=== PATIENT | female | born 1965 | race Caucasian/White ===

== ENCOUNTER 2020-11-03 17:57 | Emergency (ER) | payer BC ==
[2020-11-03] MEDS ORDERED: Sodium Chloride 0.9% 1000 ML 1,000 ML IV STA (18:33)
[2020-11-03] MEDS ORDERED: Sodium Chloride 0.9% 1000 ML 1,000 ML ONE (18:38)
[2020-11-03 18:48] VITALS: PULSE 54; O2SAT 100
[2020-11-03 18:48] LABS: BASOPHIL % 0.3 % (0.0-0.4); Basophil (Absolute #) 0.02 (0-0.4); Eosinophil (Absolute #) 0.13 (0-0.5); Hemoglobin 11.8 gm/dl (12.0-16.0); Lymphocyte (Absolute #) 1.71 (1.0-4.6); Lymphocytes % 26.2 % (24.0-44.0); Mean Cell Volume 80.3 fl (78-100); Mean Corpuscular Hemoglobin 25.6 pg (26-32); Mean Corpuscular Hgb Concent. 31.9 g/dl (32-36); Mean Platelet Volume 10.3 fl (7.5-11.0); Monocyte (Absolute #) 0.56 (0.0-1.3); Monocytes % 8.6 % (0.0-12.0); Neutrophil % 62.9 % (36.0-66.0); Platelet Count 229 K/mm3 (150-450); Red Blood Count 4.61 M/mm3 (4.1-5.4); Red Cell Distribution Width 14.2 % (11.5-14.0); White Blood Count 6.5 K/mm3 (4.0-10.5)
--- NOTE | 2020-11-03 18:59 | ERPHSYRPT ---
- History of Present Illness Historian: patient Patient Subjective Stated Complaint: Pt states that [place] works at [place] and she has high anxiety over bryant and she says that she has barely eaten or drank anything all week and she thinks she is dehydrated due to a little bit of tingling in her fingers and toes and a few flutters in her chest Triage Nursing Assessment: Pt drove self to the ER, stated that she sat in the parking lot an hour before she came in due to her anxiety, hypertensive, denies pain, she dwells on covid symptoms and is scared to get it, high anxiety, pulses normal, doesn't appear to be in any distress Physician History: 54 yo anxious WF thinks that she is dehydrated because she has not been drinking enough but denies N/V/D/Fever/melena/hematochezia/dysuria/hematuria. Pt works at the [employer] and is worried about CV19. Timing/Duration: day(s) (1wk) Activities at Onset: none Quality: other (No pain) Pain Radiation: no radiation Severity of Pain-Max: none Severity of Pain-Current: none Modifying Factors: Improves With: nothing Associated Symptoms: denies symptoms Previous symptoms: no prior history Allergies/Adverse Reactions: No Known Drug Allergies Allergy (Verified 11/03/20 18:19) Home Medications: Alprazolam 0.25 mg [xanAX 0.25 MG] 0.25 mg PO UD PRN 11/03/20 [History] Amlodipine Besylate 10 mg PO DAILY 11/03/20 [History] Clopidogrel Bisulfate 75 mg [PLAVIX 75 MG Tablet] 75 mg PO DAILY 11/03/20 [History] Labetalol HCl 200 mg PO TID 11/03/20 [History] Travel Risk - International Travel Have you traveled outside of the country in past 3 weeks: No - Coronavirus Screening Are you exhibiting any of the following symptoms?: No Close contact with a COVID-19 positive Pt in past 14-21 Days: No - Review of Systems Constitutional: No Symptoms Eyes: No Symptoms Ears, Nose, & Throat: No Symptoms Respiratory: No Symptoms Cardiac: No Symptoms Abdominal/Gastrointestinal: No Symptoms Genitourinary Symptoms: No Symptoms Musculoskeletal: No Symptoms Skin: No Symptoms Neurological: No Symptoms Psychological: No Symptoms Endocrine: No Symptoms Hematologic/Lymphatic: No Symptoms Immunological/Allergic: No Symptoms - Past Medical History Pertinent Past Medical History: Yes Cardiac History: Hypertension Respiratory History: Asthma History: Renal Disease Psycho-Social History: Anxiety - Past Surgical History Past Surgical History: Yes Gastrointestinal: Appendectomy Female Surgical History: Hysterectomy, Section Other Surgical History: renal artery stent, abdominoplasty, gastric sleeve - Social History Smoking Status: Former smoker Exposure to second hand smoke: No Drug Use: none Patient Lives Alone: No Significant Family History: no pertinent family hx - Female History Hx Now: No - Nursing Vital Signs Nursing Vital Signs: Initial Vital Signs Temperature 98.4 F 11/03/20 18:09 Pulse Rate 62 11/03/20 18:09 Blood Pressure 160/92 11/03/20 18:09 O2 Sat by Pulse Oximetry 99 11/03/20 18:09 Pain Scale Pain Intensity 0 - Physical Exam General Appearance: no apparent distress, anxiety Eye Exam: PERRL/EOMI, eyes nml inspection Ears, Nose, Throat Exam: normal ENT inspection, TMs normal, pharynx normal, moist mucous membranes Neck Exam: normal inspection, non-tender, supple, full range of motion, No meningismus, No mass, No Brudzinski, No Kernig's, No carotid bruit Respiratory Exam: normal breath sounds, lungs clear, airway intact, No respiratory distress Cardiovascular Exam: regular rate/rhythm, normal heart sounds, normal peripheral pulses, capillary refill <2 sec, No murmur Gastrointestinal/Abdomen Exam: soft, normal bowel sounds, No tenderness, No distention Back Exam: normal inspection, normal range of motion, No CVA tenderness, No vertebral tenderness Extremity Exam: normal inspection, normal range of motion Neurologic Exam: alert, oriented x 3, cooperative, 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, normal mood/affect, nml cerebellar function, nml station & gait, sensation nml, No motor deficits, No sensory deficit Skin Exam: normal color, warm, dry, No rash Lymphatic Exam: No adenopathy SpO2 Interpretation: normal SpO2: 100 O2 Delivery: Room Air - Course Nursing assessment & vital signs reviewed: Yes Ordered Tests: Active Orders 24 hr Category Date Time Status IV Insertion STAT Care 11/03/20 18:33 Completed CBC W DIFF Stat Lab 11/03/20 18:37 Completed CMP Stat Lab 11/03/20 18:37 Completed Medication Summary Discontinued Medications Generic Name Dose Route Start Last Admin Trade Name Gabriele PRN Reason Stop Dose Admin Sodium Chloride 1,000 mls @ 999 mls/hr 11/03/20 18:33 11/03/20 18:40 Sodium Chloride 0.9% 1000 Ml IV 11/03/20 19:33 999 mls/hr .Q1H1M STA Administration Sodium Chloride Confirm 11/03/20 18:38 Sodium Chloride 0.9% 1000 Ml Administered 11/03/20 18:39 Dose 1,000 mls @ ud .ROUTE .STK-MED ONE Lab/Rad Data: Laboratory Result Diagrams 11/03/20 18:37 11/03/20 18:37 Laboratory Results 11/03/20 11/03/20 Range/Units 18:37 18:37 WBC 6.5 (4.0-10.5) K/mm3 RBC 4.61 (4.1-5.4) M/mm3 Hgb 11.8 L (12.0-16.0) gm/dl Hct 37.0 (35-47) % MCV 80.3 (78-100) fl MCH 25.6 L (26-32) pg MCHC 31.9 L (32-36) g/dl RDW 14.2 H (11.5-14.0) % Plt Count 229 (150-450) K/mm3 MPV 10.3 (7.5-11.0) fl Gran % 62.9 (36.0-66.0) % Eos # (Auto) 0.13 (0-0.5) Absolute Lymphs (auto) 1.71 (1.0-4.6) Absolute Monos (auto) 0.56 (0.0-1.3) Lymphocytes % 26.2 (24.0-44.0) % Monocytes % 8.6 (0.0-12.0) % Eosinophils % 2.0 (0.00-5.0) % Basophils % 0.3 (0.0-0.4) % Absolute Granulocytes 4.10 (1.4-6.9) Basophils # 0.02 (0-0.4) Sodium 139 (137-145) mmol/L Potassium 3.9 (3.5-5.1) mmol/L Chloride 107 (98-107) mmol/L Carbon Dioxide 23 (22-30) mmol/L Anion Gap 12.5 (5-15) MEQ/L BUN 14 (7-17) mg/dL Creatinine 1.18 H (0.52-1.04) mg/dL Estimated GFR 50.7 ML/MIN Glucose 105 (74-106) mg/dL Calcium 9.8 (8.4-10.2) mg/dL Total Bilirubin 0.50 (0.2-1.3) mg/dL AST 22 (14-36) U/L ALT 20 (0-35) U/L Alkaline Phosphatase 78 (38-126) U/L Serum Total Protein 8.0 (6.3-8.2) g/dL Albumin 4.5 (3.5-5.0) g/dL - Progress Progress Note: 11/03/20 19:06 1L NS bolus Counseled pt/family regarding: lab results, need for follow-up - Departure Departure Disposition: Home Clinical Impression: Dehydration symptoms, Anxiety Condition: Stable Critical Care Time: No Referrals: HALLE CORCORAN [Primary Care Provider] - Instructions: Dehydration, Adult (DC) Additional Instructions: Drink plenty of fluids Follow up with your family MD in 1-2 days Return to ER as needed
[2020-11-03 19:01] LABS: ALBUMIN 4.5 g/dL (3.5-5.0); ANION GAP 12.5 MEQ/L (5-15); BILIRUBIN,TOTAL 0.5 mg/dL (0.2-1.3); Calcium 9.8 mg/dL (8.4-10.2); Creatinine 1 1.18 mg/dL (0.52-1.04); EST GLOMERULAR FILTRATION RATE 50.7 ML/MIN; Potassium 3.9 mmol/L (3.5-5.1)
[2020-11-03 19:46] VITALS: BP 159/74
== END 2020-11-03 19:46 | disposition home or self-care (01) ==
LOC: ED 17:57
DX: E86.0 Dehydration (principal); F41.9 Anxiety disorder, unspecified; Z79.899 Other long term (current) drug therapy; I10 Essential (primary) hypertension
CPT/HCPCS: 36415; 80053; 85025; 96360; 99284